=== PATIENT | male | born 1975 | race Caucasian/White ===

== ENCOUNTER 2016-07-15 05:34 | Emergency (ER) | payer OTHER ==
[~2016-07-15 05:34] MED LIST: ATI1 PO; FOL1 PO; THI100 PO
[2016-07-15 06:33] LABS: PLATELET COUNT 253 x10^3mcL (130-400); RED CELL DISTRIBUTION WIDTH 13.7 % (11.5-14.5)
[2016-07-15 06:44] LABS: CALCIUM 9.3 mg/dL (8.5-10.1); CARBON DIOXIDE 33.7 mmol/L (21-32); CHLORIDE SERUM 104 mmol/L (98-107); CREATININE SERUM 0.8 mg/dL (0.7-1.3); GFR1 > 60 mL/min; GLUCOSE SERUM 109 mg/dL (74-106); POTASSIUM SERUM 4.2 mmol/L (3.5-5.1); SODIUM SERUM 142 mmol/L (136-145)
[2016-07-15 06:48] LABS: ALBUMIN 4.3 g/dL (3.4-5.0); ALKALINE PHOSPHATASE 50 U/L (46-116); ALT/SGPT 22 U/L (16-63); AMYLASE 42 U/L (25-115); AST/SGOT 17 U/L (15-37); LIPASE 119 IU/L (73-393)
[2016-07-15 09:34] VITALS: BP 115/81
== END 2016-07-15 09:34 | disposition home or self-care (01) ==
LOC: ED 05:34
PROVIDERS: Emergency Medicine
DX: K57.92 Diverticulitis of intestine, part unspecified, without perforation or abscess without bleeding (principal); F10.20 Alcohol dependence, uncomplicated
CPT/HCPCS: 83880; J1170; J1885; J2405; J2543

== ENCOUNTER 2017-07-10 17:28 | Inpatient (IN) | payer OTHER ==
[~2017-07-10] VITALS: Ht 172.7 cm; Wt 63.5 kg
[2017-07-10 17:32] VITALS: Ht 172.7 cm; Wt 63.5 kg
[2017-07-10 18:15] LABS: microscopic required? NO
[2017-07-10 18:29] LABS: UA SPECIFIC GRAVITY <=1.005 (1.005-1.035); urine erythrocyte NEGATIVE (NEGATIVE)
[2017-07-10 18:58] LABS: BASOPHIL % 0.4 % (0-2); PLATELET COUNT 157 x10^3mcL (130-400); RED CELL DISTRIBUTION WIDTH 13.3 % (11.5-14.5)
[2017-07-10 19:13] LABS: CALCIUM 8.4 mg/dL (8.5-10.1); CHLORIDE SERUM 97 mmol/L (98-107); CREATININE SERUM 0.7 mg/dL (0.7-1.3); GFR1 > 60 mL/min; GLUCOSE SERUM 118 mg/dL (74-106); POTASSIUM SERUM 3.7 mmol/L (3.5-5.1); SODIUM SERUM 136 mmol/L (136-145)
[2017-07-10 19:16] LABS: ALBUMIN 4.1 g/dL (3.4-5.0); ALKALINE PHOSPHATASE 70 U/L (46-116); ALT/SGPT 29 U/L (16-63); AST/SGOT 34 U/L (15-37); BILIRUBIN TOTAL 0.6 mg/dL (0.20-1.00); CHOLESTEROL 172 mg/dL (<200); LIPASE 112 IU/L (73-393); TRIGLYCERIDES 68 mg/dL (<150)
[2017-07-10 19:21] LABS: CHOLESTEROL/HDL RATIO 1.7; HDL CHOLESTEROL 99 mg/dL (40-60)
[2017-07-10 19:24] LABS: FREE T4 0.97 ng/dL (0.76-1.46); FREE THYROXINE INDEX 2.4 ug/dL (1.4-4.5); T4(THYROXINE) 6.6 ug/dL (4.7-13.3)
[2017-07-10 19:26] LABS: T3 TOTAL 0.98 ng/mL
[2017-07-10 20:19] LABS: AMPHETAMINE QUAL UR NONE DETECTED (NEG <=1000)
[2017-07-10 20:23] VITALS: BP 129/83
[2017-07-10 20:32] LABS: MAGNESIUM 2.1 mg/dL (1.8-2.4); PHOSPHOROUS 3.5 mg/dL (2.5-4.9)
== END 2017-07-10 22:00 | disposition left against medical advice (07) | DRG 770 ==
LOC: ED 17:28 → DU 19:35
PROVIDERS: Family Medicine; Specialist
DX: F10.229 Alcohol dependence with intoxication, unspecified (principal); G92 Toxic encephalopathy; E87.2 Acidosis; E83.51 Hypocalcemia; F10.239 Alcohol dependence with withdrawal, unspecified; Y90.9 Presence of alcohol in blood, level not specified
CPT/HCPCS: 83880; 84439; G0480; J1885; J2060; J3411; J3475; J3490; J7030

== ENCOUNTER 2017-11-14 21:41 | Emergency (ER) | payer OTHER ==
[~2017-11-14] VITALS: Ht 170.2 cm; Wt 65.8 kg
[2017-11-14 21:48] VITALS: Ht 170.2 cm; Wt 65.8 kg
[2017-11-14 23:33] VITALS: BP 118/73
[2017-11-14 23:33] LABS: BASOPHIL % 0.5 % (0-2); RED CELL DISTRIBUTION WIDTH 13.8 % (11.5-14.5)
[2017-11-14 23:37] LABS: PLATELET COUNT 55 x10^3mcL (130-400)
[2017-11-14 23:47] LABS: AMPHETAMINE QUAL UR NONE DETECTED (See below)
[2017-11-14 23:56] LABS: ALKALINE PHOSPHATASE 71 U/L (46-116); ALT/SGPT 48 U/L (16-63); AST/SGOT 127 U/L (15-37); BILIRUBIN TOTAL 0.5 mg/dL (0.20-1.00); CALCIUM 6.5 mg/dL (8.5-10.1); CARBON DIOXIDE 31.4 mmol/L (21-32); CHLORIDE SERUM 99 mmol/L (98-107); CREATININE SERUM 0.6 mg/dL (0.7-1.3); GFR1 > 60 mL/min; GLUCOSE SERUM 122 mg/dL (74-106); LIPASE 356 IU/L (73-393); MAGNESIUM 2.3 mg/dL (1.8-2.4); SODIUM SERUM 140 mmol/L (136-145); TOTAL PROTEIN, SERUM 6.5 g/dL (6.4-8.2)
[2017-11-14 23:58] LABS: ALBUMIN 3.3 g/dL (3.4-5.0)
== END 2017-11-14 23:55 | disposition left against medical advice (07) ==
LOC: ED 21:41
PROVIDERS: Emergency Medicine
DX: F10.129 Alcohol abuse with intoxication, unspecified (principal); E86.0 Dehydration
CPT/HCPCS: G0480; J2405; J3411; J3475; J3490; J7030

== ENCOUNTER 2017-11-22 22:34 | Emergency (ER) | payer OTHER ==
[~2017-11-22] VITALS: Ht 172.7 cm; Wt 67.2 kg
[2017-11-22 23:23] VITALS: Ht 172.7 cm; Wt 67.2 kg
[2017-11-23 00:34] LABS: BASOPHIL % 1.5 % (0-2); PLATELET COUNT 235 x10^3mcL (130-400); RED CELL DISTRIBUTION WIDTH 14.4 % (11.5-14.5)
[2017-11-23 00:45] LABS: CALCIUM 7.4 mg/dL (8.5-10.1); CARBON DIOXIDE 28.4 mmol/L (21-32); CHLORIDE SERUM 104 mmol/L (98-107); CREATININE SERUM 0.7 mg/dL (0.7-1.3); GFR1 > 60 mL/min; GLUCOSE SERUM 78 mg/dL (74-106); POTASSIUM SERUM 3.7 mmol/L (3.5-5.1); SODIUM SERUM 138 mmol/L (136-145)
[2017-11-23 00:50] LABS: ALBUMIN 3.5 g/dL (3.4-5.0); ALKALINE PHOSPHATASE 69 U/L (46-116); ALT/SGPT 61 U/L (16-63); AST/SGOT 49 U/L (15-37); BILIRUBIN TOTAL 0.3 mg/dL (0.20-1.00); TOTAL PROTEIN, SERUM 6.8 g/dL (6.4-8.2)
[2017-11-23 01:05] LABS: FREE T4 1.11 ng/dL (0.76-1.46); FREE THYROXINE INDEX 2.7 ug/dL (1.4-4.5); T4(THYROXINE) 7.7 ug/dL (4.7-13.3)
[2017-11-23 01:17] LABS: AMPHETAMINE QUAL UR NONE DETECTED (See below)
[2017-11-23 01:56] VITALS: BP 101/70
[2017-11-23 01:59] LABS: T3 TOTAL 0.99 ng/mL
== END 2017-11-23 01:56 | disposition home or self-care (01) ==
LOC: ED 22:34
PROVIDERS: Specialist
DX: Z00.8 Encounter for other general examination (principal); Z88.8 Allergy status to other drugs, medicaments and biological substances
CPT/HCPCS: 36415; 84439; G0480

== ENCOUNTER 2018-05-05 02:46 | Emergency (ER) | payer OTHER ==
[~2018-05-05] VITALS: Ht 172.7 cm; Wt 64.4 kg
[2018-05-05 02:53] VITALS: Ht 172.7 cm; Wt 64.4 kg
[2018-05-05 04:40] VITALS: BP 128/86
== END 2018-05-05 05:05 | disposition home or self-care (01) ==
LOC: ED 02:46
DX: F10.129 Alcohol abuse with intoxication, unspecified (principal); F32.9 Major depressive disorder, single episode, unspecified; Z98.890 Other specified postprocedural states; Z88.8 Allergy status to other drugs, medicaments and biological substances
CPT/HCPCS: J7030